=== PATIENT | male | born 1980 ===

== ENCOUNTER 2017-04-14 13:59 | Emergency (ER) | payer MEDICAID ==
[2017-04-14 14:14] VITALS: BP 127/53; PULSE 67; RESP 16; TEMP 97.8; O2SAT 99
[2017-04-14] MEDS ORDERED: Albuterol-Ipratrop 3 mg / 0.5 (3 ml) UD INH STA ×2 (14:40→15:45)
--- NOTE | 2017-04-14 14:42 | ED PDOC ---
HPI: CCC, URI, Sore Throat Time Seen by Provider: 04/14/17 14:15 Chief Complaint (Nursing): Cough, Cold, Congestion Chief Complaint (Provider): cough History Per: Patient History/Exam Limitations: no limitations Onset/Duration Of Symptoms: Days (x4) Current Symptoms Are (Timing): Still Present Additional Complaint(s): Bandar Steve is a 36 year old male with previous medical history of asthma, gastritis and colitis, who presents to the emergency department with a complaint of shortness of breath associated with dry cough, chest tightness and congestion ongoing for 4 days after arriving home from [place]. Denied any fever or chills. Patient stated he took prescribed Albuterol with no improvement in symptoms. PMD: none provided Past Medical History Reviewed: Historical Data, Nursing Documentation, Vital Signs Vital Signs: Last Vital Signs Temp 97.8 F 04/14/17 14:11 Pulse 67 04/14/17 14:11 Resp 16 04/14/17 14:11 BP 127/53 L 04/14/17 14:11 Pulse Ox 99 04/14/17 15:25 - Medical History PMH: Asthma, Gastritis Other PMH: Ulcerative colitis - Family History Family History: States: Unknown Family Hx - Home Medications Home Medications: Ambulatory Orders Medication Instructions Recorded Methylprednisolone [Medrol Dose 4 mg PO DAILY #21 mg 04/14/17 Pack (21 tabs)] Promethazine HCl/Codeine 5 ml PO HS #80 ml 04/14/17 [Prometh-Codein 6.25-10 mg/5 ml] - Allergies Allergies/Adverse Reactions: Allergies Allergy/AdvReac Type Severity Reaction Status Date / Time seafood Allergy RASH Uncoded 04/14/17 14:15 Review of Systems ROS Statement: Except As Marked, All Systems Reviewed And Found Negative Constitutional: Negative for: Fever, Chills Cardiovascular: Positive for: Chest Pain ("tightness"), Other (chest congestion) Respiratory: Positive for: Cough (dry), Shortness of Breath Physical Exam - Reviewed Nursing Documentation Reviewed: Yes Vital Signs Reviewed: Yes - Physical Exam Appears: Positive for: Well, Non-toxic, No Acute Distress Head Exam: Positive for: ATRAUMATIC, NORMAL INSPECTION, NORMOCEPHALIC Skin: Positive for: Normal Color Cardiovascular/Chest: Positive for: Regular Rate, Rhythm. Negative for: Chest Non Tender Respiratory: Positive for: Wheezing (mild expiratory wheezing bilaterally). Negative for: Normal Breath Sounds, Decreased Breath Sounds, Respiratory Distress Neurologic/Psych: Positive for: Alert (x3), Oriented - Laboratory Results Result Diagrams: 04/14/17 15:11 04/14/17 15:11 - ECG O2 Sat by Pulse Oximetry: 99 (RA) Pulse Ox Interpretation: Normal Medical Decision Making Medical Decision Making: Initial Impression: URI; bronchospasm R/O pulmonary embolism Initial Plan: * EKG * CMP * CBC * D Dimer * CXR * Duoneb 3ml INH * Solu-medrol 125mg IVP Time: 1506 --CXR FINDINGS: LUNGS: No active pulmonary disease. PLEURA: No significant pleural effusion identified. No pneumothorax apparent. CARDIOVASCULAR: Normal. OSSEOUS STRUCTURES: No significant abnormalities. VISUALIZED UPPER ABDOMEN: Normal. OTHER FINDINGS: None. IMPRESSION: No active disease. Labs resulted and reviewed with Pt who demonstrated full understanding. Stable for dc at this time Lungs CTA bilaterally with full resolution of wheezing Scribe Attestation: Documented by Jeannie Leal, acting as a scribe for Lu Mathew Provider Scribe Attestation: All medical record entries made by the Scribe were at my direction and personally dictated by me. I have reviewed the chart and agree that the record accurately reflects my personal performance of the history, physical exam, medical decision making, and the department course for this patient. I have also personally directed, reviewed, and agree with the discharge instructions and disposition. Disposition - Clinical Impression Clinical Impression: Upper respiratory infection, Bronchospasm - Patient ED Disposition Is Patient to be Admitted: No - Disposition Disposition: Routine/Home Disposition Time: 16:32 Condition: STABLE Prescriptions: Methylprednisolone [Medrol Dose Pack (21 tabs)] 4 mg PO DAILY #21 mg Promethazine HCl/Codeine [Prometh-Codein 6.25-10 mg/5 ml] 5 ml PO HS #80 ml Instructions: Upper Respiratory Infection (ED) Forms: [employer] (Lebanese)
--- NOTE | 2017-04-14 15:08 | RAD ---
HISTORY: cough, CP COMPARISON: No prior. TECHNIQUE: Chest PA and lateral FINDINGS: LUNGS: No active pulmonary disease. PLEURA: No significant pleural effusion identified. No pneumothorax apparent. CARDIOVASCULAR: Normal. OSSEOUS STRUCTURES: No significant abnormalities. VISUALIZED UPPER ABDOMEN: Normal. OTHER FINDINGS: None. IMPRESSION: No active disease.
[2017-04-14] MEDS ORDERED: Albuterol-Ipratrop 3 mg / 0.5 (3 ml) UD ONE ×2 (15:16→15:47)
[2017-04-14 15:18] LABS: BASO # 0.1 K/uL (0.0-0.2); BASO % 1.1 % (0.0-2.0); EOS # 0.2 K/uL (0.0-0.7); EOS % 2.9 % (0.0-4.0); HEMATOCRIT 41.9 % (35.0-51.0); LYMPH # 2.2 K/uL (1.0-4.3); LYMPH % 31.1 % (20.0-40.0); MEAN CELL VOLUME 91.1 fl (80.0-94.0); MEAN CORPUSCULAR HEMOGLOBIN 29.9 pg (27.0-31.0); MEAN CORPUSCULAR HGB CONC 32.8 g/dL (33.0-37.0); MONO # 0.8 K/uL (0.0-0.8); MONO % 10.8 % (0.0-10.0); NEUT # 3.8 K/uL (1.8-7.0); NEUT % 54.1 % (50.0-75.0); NRBC % 0.1 % (0.0-0.0)
[2017-04-14 15:28] LABS: ALB/GLOB RATIO 1.6 (1.0-2.1); ALKALINE PHOSPHATASE 64 U/L (38-126); ALT/SGPT 40 U/L (21-72); AST/SGOT 33 U/L (17-59); BILIRUBIN,TOTAL 0.4 mg/dl (0.2-1.3); BLOOD UREA NITROGEN 15 mg/dl (9-20); CALCIUM 9.6 mg/dL (8.4-10.2); CARBON DIOXIDE 24 mmol/L (22-30); CHLORIDE 104 mmol/L (98-107); GFR AFRICAN-AMERICAN > 60; GLUCOSE,RANDOM 79 mg/dL (75-110); POTASSIUM 3.9 MMOL/L (3.6-5.0); SODIUM 146 mmol/l (132-148); TOTAL PROTEIN 7.7 G/DL (6.3-8.2)
--- NOTE | 2017-04-15 10:35 | CARD ---
APPROVED REPORT EKG Measurement Heart [id number] <Conclusion> Sinus bradycardia Otherwise normal ECG
== END 2017-04-14 16:30 | disposition home or self-care (01) ==
LOC: H.ER 13:59
DX: J06.9 Acute upper respiratory infection, unspecified (principal)
CPT/HCPCS: 71020; 80053; 85025; 85378; 93005; 94640; 96374; 99281; J2930

== ENCOUNTER 2017-10-03 15:42 | Emergency (ER) | payer MEDICAID ==
[2017-10-03 15:54] VITALS: PULSE 75; TEMP 97.9; O2SAT 98
[2017-10-03] MEDS ORDERED: Albuterol-Ipratrop 3 mg / 0.5 (3 ml) UD IH STA ×2 (16:02→16:59)
--- NOTE | 2017-10-03 16:05 | ED PDOC ---
HPI: SOB/CHF/COPD Time Seen by Provider: 10/03/17 15:56 Chief Complaint (Nursing): Shortness Of Breath History Per: Patient Onset/Duration Of Symptoms: Days (3) Current Symptoms Are (Timing): Still Present Quality: Tightness Severity: Mild Additional Complaint(s): SOB, wheezing and nonproductive cough x 3 days assoc with sore throat and earache. Denies fever. Past Medical History Vital Signs: Last Vital Signs Temp 97.9 F 10/03/17 15:51 Pulse 75 10/03/17 15:51 Resp 20 10/03/17 15:51 BP Pulse Ox 98 10/03/17 16:05 - Medical History PMH: Asthma, Gastritis - Family History Family History: States: Unknown Family Hx - Home Medications Home Medications: Ambulatory Orders Medication Instructions Recorded Methylprednisolone [Medrol Dose 4 mg PO DAILY #21 mg 04/14/17 Pack (21 tabs)] Promethazine HCl/Codeine 5 ml PO HS #80 ml 04/14/17 [Prometh-Codein 6.25-10 mg/5 ml] Famotidine [Pepcid] 20 mg PO Q12 #20 tab 10/03/17 Prednisone 50 mg PO DAILY #5 tab 10/03/17 - Allergies Allergies/Adverse Reactions: Allergies Allergy/AdvReac Type Severity Reaction Status Date / Time seafood Allergy RASH Uncoded 10/03/17 15:54 Review of Systems ROS Statement: Except As Marked, All Systems Reviewed And Found Negative Constitutional: Negative for: Fever ENT: Positive for: Ear Pain, Throat Pain Respiratory: Positive for: Cough, Shortness of Breath, Wheezing Physical Exam - Reviewed Nursing Documentation Reviewed: Yes Vital Signs Reviewed: Yes - Physical Exam Appears: Positive for: Non-toxic, No Acute Distress Head Exam: Positive for: ATRAUMATIC, NORMAL INSPECTION, NORMOCEPHALIC Skin: Positive for: Normal Color, Warm, DRY Eye Exam: Positive for: EOMI, Normal appearance, PERRL ENT: Positive for: Normal ENT Inspection Neck: Positive for: Normal, Painless ROM Cardiovascular/Chest: Positive for: Regular Rate, Rhythm Respiratory: Positive for: Rhonchi, Wheezing. Negative for: Accessory Muscle Use, Respiratory Distress Gastrointestinal/Abdominal: Positive for: Normal Exam, Bowel Sounds, Soft Back: Positive for: Normal Inspection Extremity: Positive for: Normal ROM Neurologic/Psych: Positive for: Alert, Oriented - ECG O2 Sat by Pulse Oximetry: 98 - Progress Re-evaluation Time: 17:00 Condition: Improved (Peak flow 500) Disposition - Clinical Impression Clinical Impression: Asthma exacerbation - Patient ED Disposition Is Patient to be Admitted: No Counseled Patient/Family Regarding: Studies Performed, Diagnosis, Need For Followup, Rx Given - Disposition [facility]errals: [facility] [Outside] Disposition: Routine/Home Disposition Time: 17:01 Condition: FAIR Prescriptions: Famotidine [Pepcid] 20 mg PO Q12 #20 tab Prednisone 50 mg PO DAILY #5 tab Instructions: Asthma, Adult (DC) Forms: [employer] ([place])
[2017-10-03] MEDS ORDERED: Albuterol-Ipratrop 3 mg / 0.5 (3 ml) UD ONE (16:16)
--- NOTE | 2017-10-03 16:41 | RAD ---
HISTORY: stat COMPARISON: Chest radiograph dated 04/14/2017 TECHNIQUE: Chest PA and lateral FINDINGS: LUNGS: No active pulmonary disease. PLEURA: No significant pleural effusion identified. No pneumothorax apparent. CARDIOVASCULAR: Normal. OSSEOUS STRUCTURES: No significant abnormalities. VISUALIZED UPPER ABDOMEN: Normal. OTHER FINDINGS: None. IMPRESSION: No active disease.
[2017-10-03 17:25] VITALS: RESP 16
== END 2017-10-03 17:27 | disposition home or self-care (01) ==
LOC: H.ER 15:42
DX: J45.901 Unspecified asthma with (acute) exacerbation (principal)

== ENCOUNTER 2018-06-30 23:10 | Emergency (ER) | payer MEDICAID ==
[2018-06-30 23:23] VITALS: RESP 18; O2SAT 99
--- NOTE | 2018-07-01 01:18 | ED PDOC ---
History of Present Illness History of Present Illness: 37 y/o male with history of asthma and irritable bowel syndrome presents to ER for evaluation of sore throat and dry cough onset 2 days. Patient reports taking treatment at home with no improvement. He denies any fever, vomiting or diarrhea. PMD: Bro Cartagena HPI: Influenza Time Seen by Provider: 07/01/18 00:12 Chief Complaint: Cough, Cold, Congestion Chief Complaint (Provider): Cough, Cold, Congestion History Per: Patient Exam Limitations: no limitations Onset/Duration Of Symptoms: Days (x2) Symptoms include: sore throat, cough (Dry). denies: fever, vomiting, diarrhea Past Medical History Reviewed: Historical Data, Nursing Documentation, Vital Signs Vital Signs: Last Vital Signs Temp 98.3 F 06/30/18 23:20 Pulse 70 06/30/18 23:20 Resp 18 06/30/18 23:20 BP 116/67 06/30/18 23:20 Pulse Ox 99 06/30/18 23:20 ANTWON report viewed?: Yes - Medical History PMH: Asthma, Gastritis - Surgical History Surgical History: No Surg Hx - Family History Family History: States: Unknown Family Hx - Social History Current smoker - smoking cessation education provided: No Alcohol: None Drugs: Denies - Home Medications Home Medications: Ambulatory Orders Medication Instructions Recorded Methylprednisolone [Medrol Dose 4 mg PO DAILY #21 mg 04/14/17 Pack (21 tabs)] Promethazine HCl/Codeine 5 ml PO HS #80 ml 04/14/17 [Prometh-Codein 6.25-10 mg/5 ml] Albuterol 0.083% [Albuterol 3 ml IH Q6 #1 neb 10/03/17 Sulfate 3 Ml] Famotidine [Pepcid] 20 mg PO Q12 #20 tab 10/03/17 RX: Prednisone 50 mg PO DAILY #5 tab 10/03/17 RX: Albuterol HFA [Ventolin HFA 90 1 - 2 puff IH Q4H PRN #1 bottle 07/01/18 mcg/actuation (8 g)] - Allergies Allergies/Adverse Reactions: Allergies Allergy/AdvReac Type Severity Reaction Status Date / Time seafood Allergy unknown Uncoded 06/30/18 23:20 (+) allergy testing Review of Systems ROS Statement: Except As Marked, All Systems Reviewed And Found Negative Constitutional: Negative for: Fever ENT: Positive for: Throat Pain Respiratory: Positive for: Cough (Dry) Gastrointestinal: Negative for: Vomiting, Diarrhea Physical Exam - Reviewed Nursing Documentation Reviewed: Yes Vital Signs Reviewed: Yes - Physical Exam Appears: Positive for: Non-toxic, No Acute Distress Head Exam: Positive for: ATRAUMATIC, NORMOCEPHALIC Skin: Positive for: Normal Color, Warm, Dry Eye Exam: Positive for: Normal appearance, EOMI, PERRL ENT: Positive for: Normal ENT Inspection Neck: Positive for: Normal, Painless ROM, Supple Cardiovascular/Chest: Positive for: Regular Rate, Rhythm. Negative for: Murmur Respiratory: Positive for: Wheezing (Slight), Other (no tahcypnea, no labored breating). Negative for: Accessory Muscle Use, Crackles Gastrointestinal/Abdominal: Positive for: Normal Exam, Soft. Negative for: Tenderness Back: Positive for: Normal Inspection Extremity: Positive for: Normal ROM. Negative for: Pedal Edema, Deformity Neurologic/Psych: Positive for: Alert, Oriented (x3) Medical Decision Making Medical Decision Making: Time:0114 Initial Plan: wheezing, ashtma exacerbation no fever or abnormal vital signs pt appears comfortable --Prednisone 40 mg --Rapid Strep pt felt better after duoneb and steroids doesnt want rx prednisone nidhi says oral med interacts with his IBS meds. only iv steroinds work fo rhim. pt stable for dc. appears comfortable Scribe Attestation: Documented by Padmini Bauman, acting as a scribe for Kiel Butterfield MD. Provider Scribe Attestation: All medical record entries made by the Scribe were at my direction and personally dictated by me. I have reviewed the chart and agree that the record accurately reflects my personal performance of the history, physical exam, medical decision making, and the department course for this patient. I have also personally directed, reviewed, and agree with the discharge instructions and disposition. - ECG O2 Sat by Pulse Oximetry: 99 (RA) Pulse Ox Interpretation: Normal Disposition - Clinical Impression Clinical Impression: Asthma exacerbation - Patient ED Disposition Is Patient to be Admitted: No Counseled Patient/Family Regarding: Studies Performed, Diagnosis, Need For Followup - Disposition Disposition: Routine/Home Disposition Time: 03:25 Condition: IMPROVED Additional Instructions: follow up with your primary doctor in 1-2 days return to the ED with any worsening or concerning symptoms Prescriptions: RX: Albuterol HFA [Ventolin HFA 90 mcg/actuation (8 g)] 1 - 2 puff IH Q4H PRN #1 bottle PRN Reason: Wheezing Instructions: Asthma, Adult (DC) Forms: [employer] (Serbian)
[2018-07-01] MEDS ORDERED: Albuterol-Ipratrop 3 mg / 0.5 (3 ml) UD INH STA (01:34)
[2018-07-01] MEDS ORDERED: Albuterol-Ipratrop 3 mg / 0.5 (3 ml) UD ONE (01:34)
[2018-07-01 03:36] VITALS: BP 123/77; PULSE 82; TEMP 98.4
== END 2018-07-01 03:35 | disposition home or self-care (01) ==
LOC: H.ER 23:10
DX: J45.901 Unspecified asthma with (acute) exacerbation (principal); Z79.899 Other long term (current) drug therapy
CPT/HCPCS: 87070; 87430; 94150; 94640; 96374; 99283; J2930